=== PATIENT | male | born 1980 | race Caucasian/White ===

== ENCOUNTER 2018-09-11 09:10 | Emergency (ER) | payer MEDICAID, OTHER ==
[2018-09-11 09:25] VITALS: BP 120/80
[2018-09-11] MEDS ORDERED: Benoxinate/Fluorescein 0.4-0.25% Ophth Soln 5 ML Bottle EYELF ONE (09:48)
[2018-09-11] MEDS ORDERED: Fluorescein 0.6 MG Ophth Strip ONE (09:50)
--- NOTE | 2018-09-11 10:17 | EDM.PDOC ---
ED HPI GENERAL MEDICAL PROBLEM - General Chief Complaint: ENT Problem Stated Complaint: SOMETHING IN R EYE Time Seen by Provider: 09/11/18 09:24 Source of Information: Reports: Patient History Limitations: Reports: No Limitations - History of Present Illness INITIAL COMMENTS - FREE TEXT/NARRATIVE: Left eye pain. 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 He was taking off his sweatshirt last night and he thinks he got something in his eye. He is blind in his right eye. He feels like there is something in his eye. He has no blurred vision. Onset: Sudden Duration: Hour(s): (Last night at 9pm) Location: Reports: Other (Left eye) Quality: Reports: Sharp Severity: Moderate Improves with: Reports: None Worsens with: Reports: None Context: Reports: Other ([place]) Associated Symptoms: Reports: No Other Symptoms Treatments PREBOARDER: Reports: Acetaminophen Left Eye Pain Score (Numeric/FACES): 9 - Related Data Allergies Allergy/AdvReac Type Severity Reaction Status Date / Time bee pollen Allergy Anaphylactic Verified 09/11/18 09:20 Shock seizure med Allergy Cannot Uncoded 03/30/18 08:00 Remember Home Meds: Home Meds Acetaminophen [Tylenol Extra Strength] 1,000 mg PO BID 09/11/18 [History] Ciprofloxacin [Ciprofloxacin 0.3% Oph Soln] 1 drop EYELF Q4HR #1 bottle [Rx] Past Medical History HEENT History: Reports: Impaired Vision Other HEENT History: R eye blindness Neurological History: Reports: Brain Injury, Headaches, Chronic Other Neuro History: 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 - Past Surgical History Head Surgeries/Procedures: Reports: Craniotomy HEENT Surgical History: Reports: Oral Surgery Social & Family History - Family History Family Medical History: Noncontributory Respiratory: Reports: Other (See Below) - Tobacco Use Smoking Status *Q: Current Some Day Smoker Years of Tobacco use: 30 Packs/Tins Daily: 1 - Caffeine Use Caffeine Use: Reports: Energy Drinks - Recreational Drug Use Recreational Drug Use: Yes Drug Use in Last 12 Months: No Recreational Drug Type: Reports: Marijuana/Hashish Recreational Drug Use Frequency: Not Used In Over 6 Months - Living Situation & Occupation Living situation: Reports: , with Spouse, with Family (3 kids) Occupation: Employed (Fabricator) ED ROS ENT - Review of Systems Review Of Systems: See Below Constitutional: Reports: No Symptoms HEENT: Reports: Eye Pain Respiratory: Reports: No Symptoms Cardiovascular: Reports: No Symptoms Endocrine: Reports: No Symptoms GI/Abdominal: Reports: No Symptoms ED EXAM, ENT - Physical Exam Exam: See Below Exam Limited By: No Limitations General Appearance: Alert, No Apparent Distress Eye Exam: Left Eye: Conjunctival Injection, Foreign Body (Mid cornea), PERRL Ears: Normal External Exam Nose: Normal Inspection Head: Atraumatic, Normocephalic Neck: Normal Inspection Respiratory/Chest: No Respiratory Distress ED EYE PROCEDURE - Eye Procedure Alcaine Drops Administered: Yes (Proparacaine) Eye FB Removal: Other (Eye spud) Eye Irrigated w/ Saline (ccs): 2 Course - Vital Signs Last Recorded V/S: Last Vital Signs Temp 97.2 F 09/11/18 09:23 Pulse 64 09/11/18 09:23 Resp 14 09/11/18 09:23 BP 120/80 09/11/18 09:23 Pulse Ox 100 09/11/18 09:23 - Orders/Labs/Meds Meds: Medications Discontinued Medications Generic Name Dose Route Start Last Admin Trade Name Freq PRN Reason Stop Dose Admin Fluorescein Sodium Confirm 09/11/18 09:50 [place] Administered 09/11/18 09:51 Dose 0.6 mg .ROUTE .STK-MED ONE Fluorescein Sodium/Benoxinate HCl 1 ml 09/11/18 09:48 Fluress Ophth Soln EYELF 09/11/18 09:49 ONETIME ONE - Re-Assessments/Exams Free Text/Narrative Re-Assessment/Exam: 09/11/18 10:16 I used proparicaine to anaesthetize his eye and I used fluress to look at his eye. He had a metal FB in the middle of his cornea. I used an eye spud to remove it. I will get him on some cipro drops. Departure - Departure Time of Disposition: 10:20 Disposition: Home, Self-Care 01 Condition: Good Clinical Impression: Foreign body of left eye Qualifiers: Encounter type: initial encounter Qualified Code(s): T15.92XA - Foreign body on external eye, part unspecified, left eye, initial encounter - Discharge Information *PRESCRIPTION DRUG MONITORING PROGRAM REVIEWED*: Not Applicable *COPY OF PRESCRIPTION DRUG MONITORING REPORT IN PATIENT JOHN: Not Applicable Prescriptions: Ciprofloxacin [Ciprofloxacin 0.3% Ophth Soln] 1 drop EYELF Q4HR #1 bottle Referrals: PCP,None [Primary Care Provider] - Additional Instructions: Use the cipro drops 1 drop every 4 hours while awake for 1 week. Follow up with an professional nursing assistant if you are worse or not better or return to the ER.
== END 2018-09-11 10:37 | disposition home or self-care (01) ==
LOC: JD.ED 09:10
DX: T15.02XA Foreign body in cornea, left eye, initial encounter (principal); F17.210 Nicotine dependence, cigarettes, uncomplicated; Z91.030 Bee allergy status
CPT/HCPCS: 65205; 65220; 65222; 99282; 99283-25

== ENCOUNTER 2022-12-07 19:59 | Emergency (ER) | payer SELFPAY ==
[2022-12-07 20:21] VITALS: BP 123/83; PULSE 68
== END 2022-12-07 21:27 | disposition home or self-care (01) ==
LOC: JD.ED 19:59
DX: S93.402A Sprain of unspecified ligament of left ankle, initial encounter (principal); Z91.030 Bee allergy status; Z88.8 Allergy status to other drugs, medicaments and biological substances; X50.1XXA Overexertion from prolonged static or awkward postures, initial encounter; Y93.39 Activity, other involving climbing, rappelling and jumping off
CPT/HCPCS: 73610-26-LT; 73610-LT; 99283

== ENCOUNTER 2023-06-05 23:44 | Emergency (ER) | payer BC ==
[2023-06-06 00:02] VITALS: BP 144/94; PULSE 69
[2023-06-06] MEDS ORDERED: Acetaminophen/HYDROcodone 325-5 MG Tab PO ONE (00:57)
== END 2023-06-06 01:23 | disposition home or self-care (01) ==
LOC: JD.ED 23:44
DX: S49.92XA Unspecified injury of left shoulder and upper arm, initial encounter (principal); F17.210 Nicotine dependence, cigarettes, uncomplicated; Z91.030 Bee allergy status; Z88.8 Allergy status to other drugs, medicaments and biological substances; W01.0XXA Fall on same level from slipping, tripping and stumbling without subsequent striking against object, initial encounter
CPT/HCPCS: 73030-26-LT; 73030-LT; 99283

== ENCOUNTER 2024-07-05 09:03 | Emergency (ER) | payer SELFPAY ==
[2024-07-05] MEDS: Morphine 4 MG/ML Syringe IM ONE (10:01)
[2024-07-05 11:31] VITALS: PULSE 56
[2024-07-05 12:44] VITALS: BP 124/62
== END 2024-07-05 12:17 | disposition home or self-care (01) ==
LOC: JD.ED 09:03
DX: S06.9X9A Unspecified intracranial injury with loss of consciousness of unspecified duration, initial encounter (principal); Z88.8 Allergy status to other drugs, medicaments and biological substances; Z91.030 Bee allergy status; Z79.899 Other long term (current) drug therapy; W00.0XXA Fall on same level due to ice and snow, initial encounter
CPT/HCPCS: 70450; 72125; 73060; 96372; 99284; J2270

== ENCOUNTER 2024-07-12 14:25 | Emergency (ER) | payer SELFPAY ==
[2024-07-12 14:54] LABS: BASOPHILS ABSOLUTE AUTO 0.1 K/mm3 (0.0-0.2); BASOPHILS PERCENT AUTO 0.6 % (0.0-1.0); EOSINOPHILS ABSOLUTE AUTO 0.1 K/mm3 (0.0-0.4); EOSINOPHILS PERCENT AUTO 1.1 % (0.0-6.0); HEMATOCRIT 43.5 % (42.0-52.0); HEMOGLOBIN 14.9 gm/dl (14.0-18.0); IMMATURE GRAN ABSOLUTE AUTO 0.02 K/mm3 (0.00-0.05); IMMATURE GRAN PERCENT AUTO 0.2 % (0.0-0.4); LYMPHOCYTES ABSOLUTE AUTO 2.4 K/mm3 (1.0-4.8); LYMPHOCYTES PERCENT AUTO 29.4 % (24.0-44.0); MEAN CORPUSCULAR HEMOGLOBIN 29.4 pg (28.0-32.0); MEAN CORPUSCULAR HGB CONC 34.3 g/dl (32.0-36.0); MEAN PLATELET VOLUME 9.7 fl (9.4-12.4); MONOCYTES ABSOLUTE AUTO 0.5 K/mm3 (0.0-0.8); MONOCYTES PERCENT AUTO 5.5 % (0.0-8.0); NEUTROPHILS ABSOLUTE AUTO 5.1 K/mm3 (1.8-7.7); NEUTROPHILS PERCENT AUTO 63.2 % (41.0-71.0); PLATELET COUNT,PLT 368 K/mm3 (150-400); RED BLOOD CELL COUNT 5.06 M/mm3 (4.52-5.90); WHITE BLOOD CELL COUNT,WBC 8.14 K/mm3 (3.9-11.3)
[2024-07-12 15:32] LABS: INR 0.96; PROTHROMBIN TIME 10.2 SECONDS (9.7-12.0)
[2024-07-12 15:33] LABS: PTT,PARTIAL THROMBOPLSTIN TIME 26.1 SECONDS (21.7-31.4)
[2024-07-12 15:35] LABS: D-DIMER QUANTITATIVE < 0.19 mg/L (0.19-0.50)
[2024-07-12 15:41] LABS: A/G RATIO 1.3 (1-2); ALANINE AMINOTRANSFERASE,ALT 38 U/L (16-63); ALBUMIN 4.2 g/dl (3.4-5.0); ALKALINE PHOSPHATASE 69 U/L (46-116); ANION GAP 15.6 (5-15); ASPARTATE AMNIOTRANSFERASE,AST 16 U/L (15-37); BILIRUBIN TOTAL 0.3 mg/dL (0.2-1.0); BLOOD UREA NITROGEN,BUN 9 mg/dL (7-18); CALCIUM 8.9 mg/dL (8.5-10.1); CARBON DIOXIDE,CO2 26 mEq/L (21-32); CHLORIDE,CL 103 mEq/L (98-107); CREATININE 0.9 mg/dL (0.7-1.3); EST CRCL DRUG DOSING (CG) 106.92 mL/min; ESTIMATED GFR 109 mL/min (>60); MAGNESIUM 1.6 mg/dL (1.8-2.4); PROTEIN TOTAL,TP 7.4 g/dl (6.4-8.2); SODIUM,NA 141 mEq/L (136-145)
[2024-07-12 15:44] LABS: GLUCOSE RANDOM 124 mg/dL (70-99); POTASSIUM,K 3.6 mEq/L (3.5-5.1); TROPONIN I HIGH SENSITIVITY < 4 pg/mL (<=76)
[2024-07-12] MEDS: Magnesium Oxide 400 MG Tab PO ONE (16:17)
[2024-07-12 17:57] VITALS: BP 133/84; PULSE 62
== END 2024-07-12 17:50 | disposition home or self-care (01) ==
LOC: JD.ED 14:25
DX: R07.89 Other chest pain (principal); E83.42 Hypomagnesemia; F17.220 Nicotine dependence, chewing tobacco, uncomplicated; F17.290 Nicotine dependence, other tobacco product, uncomplicated; Z91.030 Bee allergy status; Z88.8 Allergy status to other drugs, medicaments and biological substances
CPT/HCPCS: 36415; 71045; 80053; 83735; 83880; 84484; 85025; 85379; 85610; 85730; 93005; 99285; A9270